=== PATIENT | female | born 1950 | race Caucasian/White ===

== ENCOUNTER 2022-06-03 13:28 | Inpatient (IN) | payer MEDICARE ==
[2022-06-03 18:26] LABS: Appearance,Urine Clear (Clear); Bilirubin,Urine Negative (Negative); Blood,Urine Negative (Negative); Color,Urine Yellow; Glucose,Urine (UA) Negative (Negative); Ketones,Urine Negative (Negative); Leukocyte Esterase,Urine Negative (Negative); Nitrite,Urine Negative (Negative); Protein,Urine Negative (Negative); Specific Gravity,Urine 1.018 (1.001-1.035); Urobilinogen,Urine <2.0 mg/dL (<2.0)
[2022-06-03 18:36] LABS: Amphetamine Screen,Urine Not Detected (NotDetected); Barbiturate Screen,Urine Not Detected (NotDetected); Benzodiazepines Screen,Urine Not Detected (NotDetected); Cocaine Screen,Urine Not Detected (NotDetected); Methadone Screen, Urine Not Detected (NotDetected); Opiate Screen,Urine Not Detected (NotDetected); Oxycodone Screen, Urine Not Detected (NotDetected); Phencyclidine Screen,Urine Not Detected (NotDetected); Tricyclic Antidepressant,Urine Not Detected (NotDetected); Urn Cannabinoid Scrn Not Detected (NotDetected)
[2022-06-03] MEDS ORDERED: MAGNESIUM HYDROXIDE 2,400 MG/10 ML CUP PO PRN (18:45)
[2022-06-03] MEDS ORDERED: ACETAMINOPHEN TAB 325 MG TAB PO PRN (18:45)
[2022-06-03] MEDS ORDERED: MAG HYDROX/AL HYDROX/SIMETH 30 ML CUP PO PRN (18:45)
[2022-06-03] MEDS ORDERED: HALOPERIDOL LACTATE 5 MG/ML 1 ML VIAL IM PRN (18:45)
[2022-06-03] MEDS ORDERED: haloperidoL 5 MG TAB PO PRN (18:47)
[2022-06-03] MEDS ORDERED: LORazepam 2 MG/ML INJ IM PRN (18:47)
[2022-06-03] MEDS ORDERED: ZOLPIDEM 5 MG TAB PO PRN (18:48)
--- NOTE | 2022-06-03 22:03 | ED ---
Psych HPI - General Chief Complaint: Psychiatric Symptoms Stated Complaint: mental health Time Seen by Provider: 06/03/22 13:40 Source: patient Mode of arrival: EMS - History of Present Illness Initial Comments: 71-year-old female past medical history of asthma, hypertension who presents to the emergency department with suicidal ideations. She reports that she has had significant stress with multiple family members. States that no one in her family is getting along. States that this makes her feel extremely sad and depressed. She has a diagnosis of depression. Went to see her therapist today. They reported that they were going to be unable to see the patient because of insurance reasons. She broke down in the waiting room. Her therapist took her back to a room and spoke with her about her situation. She mentioned that she was suicidal with a plan to jump into the river. Because of this he did call an ambulance transport the patient the hospital. The patient denies any attempt at hurting herself. She denies drug or alcohol use. No other alleviating, pr ecipitating or modifying factors - Related Data Home Medications Medication Instructions Recorded Confirmed Albuterol Sulfate [Ventolin HFA] 2 puff INHALATION RT-Q6H PRN 06/03/22 06/03/22 Atorvastatin [Lipitor] 40 mg PO DAILY 06/03/22 06/03/22 Calcium Carbonate [Calcium] 600 mg PO DAILY 06/03/22 06/03/22 Cholecalciferol [Vitamin D3 (125 125 mcg PO DAILY 06/03/22 06/03/22 Mcg = 5000 Iu)] Levothyroxine Sodium [Synthroid] 88 mcg PO DAILY 06/03/22 06/03/22 Magnesium Oxide 400 mg PO DAILY 06/03/22 06/03/22 Umeclidinium [place] [Incruse 1 puff INHALATION RT-DAILY 06/03/22 06/03/22 Ellipta] Vitamin B Complex 1 cap PO DAILY 06/03/22 06/03/22 Zinc Gluconate [Zinc] 50 mg PO DAILY 06/03/22 06/03/22 amLODIPine BESYLATE/BENAZEPRIL 1 cap PO DAILY 06/03/22 06/03/22 [Lotrel 5-10 mg Capsule] Previous Rx's Medication Instructions Recorded Melatonin 6 mg PO HS 30 Days #60 tab 06/09/22 Venlafaxine HCl [Effexor XR] 225 mg PO DAILY 30 Days #30 tab 06/09/22 buPROPion XL [Wellbutrin XL] 150 mg PO DAILY 30 Days #30 tab 06/09/22 buPROPion XL [Wellbutrin XL] 300 mg PO DAILY 30 Days #30 tab 06/09/22 Allergies Allergy/AdvReac Type Severity Reaction Status Date / Time No Known Allergies Allergy Unverified 06/03/22 16:01 Review of Systems ROS Statement: Those systems with pertinent positive or pertinent negative responses have been documented in the HPI. ROS Other: All systems not noted in ROS Statement are negative. Past Medical History Past Medical History: Asthma, Hypertension, Thyroid Disorder Additional Past Medical History / Comment(s): Spinal stenosis, heart murmur, arthritis History of Any Multi-Drug Resistant Organisms: None Reported Past Surgical History: Cholecystectomy Additional Past Surgical History / Comment(s): carpal tunnel on both wrists Past Anesthesia/Blood Transfusion Reactions: No Reported Reaction Past Psychological History: Anxiety, Depression Smoking Status: Former smoker Past Alcohol Use History: Rare Past Drug Use History: None Reported - Past Family History familiy Additional Family Medical History / Comment(s): substance abuse , alcohol General Exam Limitations: no limitations General appearance: alert, in no apparent distress Head exam: Present: atraumatic, normocephalic, normal inspection Eye exam: Present: normal appearance, PERRL, EOMI. Absent: scleral icterus, conjunctival injection, periorbital swelling ENT exam: Present: normal exam, mucous membranes moist Neck exam: Present: normal inspection. Absent: tenderness, meningismus, lymphadenopathy Respiratory exam: Present: normal lung sounds bilaterally. Absent: respiratory distress, wheezes, rales, rhonchi, stridor Cardiovascular Exam: Present: regular rate, normal rhythm, normal heart sounds. Absent: systolic murmur, diastolic murmur, rubs, gallop, clicks GI/Abdominal exam: Present: soft, normal bowel sounds. Absent: distended, tenderness, guarding, rebound, rigid Extremities exam: Present: normal inspection, full ROM, normal capillary refill. Absent: tenderness, pedal edema, joint swelling, calf tenderness Back exam: Present: normal inspection Neurological exam: Present: alert, oriented X3, CN II-XII intact Psychiatric exam: Present: depressed Skin exam: Present: warm, dry, intact, normal color. Absent: rash Course Vital Signs 06/03/22 13:30 Temperature 97.6 F Pulse Rate 68 Respiratory 18 Rate Blood Pressure 109/72 O2 Sat by Pulse 98 Oximetry Medical Decision Making - Medical Decision Making Was pt. sent in by a medical professional or institution? therapist Did you speak to anyone other than the patient for history? EMS Did you review nursing and triage notes? yes and I agree Were old charts reviewed? no Differential Diagnosis? depression, anxiety, SI, HI, drug use, alcoholism EKG interpreted by me (3pts min.)? no X-rays interpreted by me (1pt min.)? no] CT interpreted by me (1pt min.)? no U/S interpreted by me (1pt. min.)? no What testing was considered but not performed? (CT, X-rays, U/S, labs)? Why? none What meds were considered but not given? Why? none Did you discuss the management of the patient with other professionals? EPS nurse Did you reconcile home meds? yes Was smoking cessation discussed for >3mins.? no Was critical care preformed (if so, how long)? no Were there social determinants of health that impacted care today? How? (Homelessness, low income, unemployed, alcoholism, drug addiction, transportation, low edu. Level, literacy, decrease access to med. care, correction, rehab)? no Was there de-escalation of care discussed even if they declined? (Discuss DNR or withdrawal of care, Hospice)? no What co-morbidities impacted this encounter? (DM, HTN, Smoking, COPD, CAD, Canc er, CVA, Hep., AIDS, mental health diagnosis, sleep apnea, morbid obesity)? asthma, htn, thyroid disorder Was patient admitted / discharged? Upon arrival the patient was placed into room 8. A thorough history and physical exam was performed. Patient does admit to me suicidal ideations with the plan. She is cleared medically. Evaluated by EPS that feels that the patient would benefit from admission. Covid and urine obtained. Patient taken to the floor in stable condition Undiagnosed new problem with uncertain prognosis? yes Drug Therapy requiring intensive monitoring for toxicity (Heparin, Nitro, Insulin, Cardizem)? no Were any procedures done? no Diagnosis/symptom? acute depression Acute, or Chronic, or Acute on Chronic? acute on chronic Uncomplicated (without systemic symptoms) or Complicated (systemic symptoms)? complicated Side effects of treatment? sedation Exacerbation, Progression, or Severe Exacerbation] exacerbation Poses a threat to life or bodily function? yes - Lab Data Result diagrams: 06/04/22 11:12 06/04/22 11:12 Lab Results 06/03/22 06/03/22 Range/Units 16:35 18:21 Urine Color Yellow Urine Appearance Clear (Clear) Urine pH 5.0 (5.0-8.0) Ur Specific [place] 1.018 (1.001-1.035) Urine Protein Negative (Negative) Urine Glucose (UA) Negative (Negative) Urine Ketones Negative (Negative) Urine Blood Negative (Negative) Urine Nitrite Negative (Negative) Urine Bilirubin Negative (Negative) Urine Urobilinogen <2.0 (<2.0) mg/dL Ur Leukocyte Esterase Negative (Negative) Urine Opiates Screen Not Detected (NotDetected) Ur Oxycodone Screen Not Detected (NotDetected) Urine Methadone Screen Not Detected (NotDetected) Ur Propoxyphene Screen Not Detected (NotDetected) Ur Barbiturates Screen Not Detected (NotDetected) U Tricyclic Antidepress Not Detected (NotDetected) Ur Phencyclidine Scrn Not Detected (NotDetected) Ur Amphetamines Screen Not Detected (NotDetected) U Methamphetamines Scrn Not Detected (NotDetected) U Benzodiazepines Scrn Not Detected (NotDetected) Urine Cocaine Screen Not Detected (NotDetected) U Marijuana (THC) Screen Not Detected (NotDetected) Coronavirus (PCR) Not Detected (Not Detectd) Disposition Clinical Impression: Major depressive disorder without psychotic features Disposition: ADMITTED IP TO THIS [facility] Condition: Stable Is patient prescribed a controlled substance at d/c from ED?: No
[2022-06-04] MEDS: LEVOTHYROXINE 88 MCG TAB PO SCH ×2 (06:39→09:19)
[2022-06-04] MEDS ORDERED: VENLAFAXINE HCL ER 150 MG CAP PO SCH (09:00)
[2022-06-04] MEDS: buPROPion XL 300 MG TAB.ER.24H PO SCH (09:18)
[2022-06-04] MEDS: lisinopriL 10 MG TAB PO SCH (09:18)
[2022-06-04] MEDS: ATORVASTATIN 40 MG TAB PO SCH (09:18)
[2022-06-04] MEDS: amLODIPine 5 MG TAB PO SCH (09:18)
[2022-06-04] MEDS: buPROPion XL 150 MG TAB.ER.24H PO SCH (09:18)
[2022-06-04] MEDS: NICOTINE 14MG/24HR PATCH TRANSDERM SCH (09:19)
[2022-06-04 12:15] LABS: Basophils # (A) 0.1 k/uL (0-0.2); Basophils % (A) 1 %; Eosinophils # (A) 0.3 k/uL (0-0.7); Eosinophils % (A) 3 %; HCT 41.2 % (34.0-46.0); HGB 13.4 gm/dL (11.4-16.0); Lymphocytes # (A) 2.8 k/uL (1.0-4.8); Lymphocytes % (A) 34 %; MCH 28.5 pg (25.0-35.0); MCHC 32.6 g/dL (31.0-37.0); MCV 87.4 fL (80.0-100.0); Mean Platelet Volume 6.9; Monocytes # (A) 0.6 k/uL (0-1.0); Monocytes % (A) 7 %; Neutrophils # (A) 4.1 k/uL (1.3-7.7); Neutrophils % (A) 51 %; Platelet Count 362 k/uL (150-450); RBC 4.72 m/uL (3.80-5.40); RDW 13.6 % (11.5-15.5); WBC 8.2 k/uL (3.8-10.6)
[2022-06-04 12:32] LABS: Calcium 9.2 mg/dL (8.4-10.2); Potassium 4.5 mmol/L (3.5-5.1); Total Bilirubin 0.4 mg/dL (0.2-1.3); Total Protein 6.8 g/dL (6.3-8.2)
--- NOTE | 2022-06-04 14:28 | P.HP ---
Psychiatric H&P - . H&P Date: 06/04/22 History & Physical: Allergies Allergy/AdvReac Type Severity Reaction Status Date / Time No Known Allergies Allergy Unverified 06/03/22 16:01 Vital Signs Temp 97.8 F 06/04/22 06:34 Pulse 85 06/04/22 06:34 Resp 14 06/04/22 06:34 BP 116/72 06/04/22 06:34 Pulse Ox 98 06/03/22 13:30 FiO2 Intake & Output 06/03/22 06/04/22 06/04/22 18:59 06:59 18:59 Weight 81.647 kg 84.056 kg Laboratory Last Values WBC 8.2 k/uL (3.8-10.6) 06/04/22 11: RBC 4.72 m/uL (3.80-5.40) 06/04/22 11:12 Hgb 13.4 gm/dL (11.4-16.0) 06/04/22 11:12 Hct 41.2 % (34.0-46.0) 06/04/22 11:12 MCV 87.4 fL (80.0-100.0) 06/04/22 11:12 MCH 28.5 pg (25.0-35.0) 06/04/22 11:12 MCHC 32.6 g/dL (31.0-37.0) 06/04/22 11:12 RDW 13.6 % (11.5-15.5) 06/04/22 11:12 Plt Count 362 k/uL (150-450) 06/04/22 11:12 MPV 6.9 06/04/22 11:12 Neutrophils % 51 % 06/04/22 11:12 Lymphocytes % 34 % 06/04/22 11:12 Monocytes % 7 % 06/04/22 11:12 Eosinophils % 3 % 06/04/22 11:12 Basophils % 1 % 06/04/22 11:12 Neutrophils # 4.1 k/uL (1.3-7.7) 06/04/22 11:12 Lymphocytes # 2.8 k/uL (1.0-4.8) 06/04/22 11:12 Monocytes # 0.6 k/uL (0-1.0) 06/04/22 11:12 Eosinophils # 0.3 k/uL (0-0.7) 06/04/22 11:12 Basophils # 0.1 k/uL (0-0.2) 06/04/22 11:12 Sodium 140 mmol/L (137-145) 06/04/22 11:12 Potassium 4.5 mmol/L (3.5-5.1) 06/04/22 11:12 Chloride 103 mmol/L (98-107) 06/04/22 11:12 Carbon Dioxide 31 mmol/L (22-30) H 06/04/22 11:12 Anion Gap 6 mmol/L 06/04/22 11:12 BUN 26 mg/dL (7-17) H 06/04/22 11:12 Creatinine 1.07 mg/dL (0.52-1.04) H 06/04/22 11:12 Est GFR (CKD-EPI)AfAm 62 (>60 ml/min/1.73 sqM) 06/04/22 11:12 Est GFR (CKD-EPI)NonAf 53 (>60 ml/min/1.73 sqM) 06/04/22 11:12 Glucose 82 mg/dL (74-99) 06/04/22 11:12 Calcium 9.2 mg/dL (8.4-10.2) 06/04/22 11:12 Total Bilirubin 0.4 mg/dL (0.2-1.3) 06/04/22 11:12 AST 24 U/L (14-36) 06/04/22 11:12 ALT 25 U/L (4-34) 06/04/22 11:12 Alkaline Phosphatase 91 U/L (38-126) 06/04/22 11:12 Total Protein 6.8 g/dL (6.3-8.2) 06/04/22 11:12 Albumin 4.0 g/dL (3.5-5.0) 06/04/22 11:12 TSH 2.200 mIU/L (0.465-4.680) 06/04/22 11:12 Urine Color Yellow 06/03/22 18:21 Urine Appearance Clear (Clear) 06/03/22 18:21 Urine pH 5.0 (5.0-8.0) 06/03/22 18:21 Ur Specific [place] 1.018 (1.001-1.035) 06/03/22 18:21 Urine Protein Negative (Negative) 06/03/22 18:21 Urine Glucose (UA) Negative (Negative) 06/03/22 18:21 Urine Ketones Negative (Negative) 06/03/22 18:21 Urine Blood Negative (Negative) 06/03/22 18:21 Urine Nitrite Negative (Negative) 06/03/22 18:21 Urine Bilirubin Negative (Negative) 06/03/22 18:21 Urine Urobilinogen <2.0 mg/dL (<2.0) 06/03/22 18:21 Ur Leukocyte Esterase Negative (Negative) 06/03/22 18:21 Urine Opiates Screen Not Detected (NotDetected) 06/03/22 18:21 Ur Oxycodone Screen Not Detected (NotDetected) 06/03/22 18:21 Urine Methadone Screen Not Detected (NotDetected) 06/03/22 18:21 Ur Propoxyphene Screen Not Detected (NotDetected) 06/03/22 18:21 Ur Barbiturates Screen Not Detected (NotDetected) 06/03/22 18:21 U Tricyclic Antidepress Not Detected (NotDetected) 06/03/22 18:21 Ur Phencyclidine Scrn Not Detected (NotDetected) 06/03/22 18:21 Ur Amphetamines Screen Not Detected (NotDetected) 06/03/22 18:21 U Methamphetamines Scrn Not Detected (NotDetected) 06/03/22 18:21 U Benzodiazepines Scrn Not Detected (NotDetected) 06/03/22 18:21 Urine Cocaine Screen Not Detected (NotDetected) 06/03/22 18:21 U Marijuana (THC) Screen Not Detected (NotDetected) 06/03/22 18:21 Coronavirus (PCR) Not Detected (Not Detectd) 06/03/22 16:35 06/04/22 14:17 IDENTIFYING DATA: Patient is a 71-year-old female who has 2 kids and several grandchildren, lives with her granddaughter in a house, is . HPI: Patient presented to the hospital yesterday and was evaluated for suicidal ideations and was endorsing stressors in her family and depression. Patient apparently was brought in from her therapy session that she was unable to have due to insurance reasons. Patient in the ER was endorsing a plan to jump in the river. Patient was seen today attending group and agreeable to specification writer. She claims that she came up to [place] to see her therapist that she was given "6 free sessions" and states that they . She claims that they told her that she was unable to continue and she claims that "I was not in a good mood" and also explained feeling frustrated and emotional and that she was not able to be seen. She claims that she told her therapist at that time that she was suicidal and wanted to jump into the river. She was brought in by ambulance. Patient did claim that she's been feeling more depressed and anxious lately. She spoke mainly about a lot of family dynamics and issues and also feeling like she can set boundaries with her grandchildren and other people and feels taken advantage of. She claims that her about 2 years ago and wants to move out of the house as well but her granddaughter won't let her. She was endorsing anxiety as well. Patient denies any suicidal or homicidal ideations intent or plan. At this time patient denies any auditory or visual hallucinations. Patient denies any flight of ideas racing thoughts and increased in goal directed behavior. Patient admits to using no recreational drugs or cigarettes. PAST PSYCHIATRIC HISTORY: Patient states that she has a history of depression and anxiety. Issues currently on Wellbutrin, Ambien as needed, Effexor and Xanax as needed. Patient denies any previous psychiatric hospitalizations. She states that she was previously going to [facility] for her therapist and was also seeing her psychiatrist in [place]. Patient denies any history of suicide attempts in the past. Past Medical History: Asthma, Hypertension, Thyroid Disorder Additional Past Medical History / Comment(s): Spinal stenosis, heart murmur, arthritis History of Any Multi-Drug Resistant Organisms: None Reported Past Surgical History: Cholecystectomy Additional Past Surgical History / Comment(s): carpal tunnel on both wrists Past Anesthesia/Blood Transfusion Reactions: No Reported Reaction Past Psychological History: Anxiety, Depression Smoking Status: Former smoker Past Alcohol Use History: Rare Past Drug Use History: None Reported ALLERGIES: as per EMR CHEMICAL DEPENDENCY HISTORY: as per HPI FAMILY PSYCHIATRIC/SUBSTANCE USE HISTORY: denies SOCIAL HISTORY: Patient was born and raised in [place]. She states that she completed high school and did some college. 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 She states that she has 2 kids and several grandkids. She currently lives in a house with her granddaughter. She is . MENTAL STATUS EXAM: General Appearance: Patient appears to be overweight, wearing glasses, brown hair, stated age is alert, directable, and attempts to cooperate. Patient appears to have poor hygiene and grooming. Behavior: Patient is seated without any agitated behavior. Peers to be frustrated at times Speech: Patient's speech is fluent and nonpressured. Mood/Affect: Patient reports their mood is depressed and anxious, affect is congruent and constricted. Suicidality/Homicidality: Patient denies having any homicidal ideation intent or plan. Denies any suicidal ideations intent or plan Perceptions: Patient denies any visual hallucinations and denies any auditory hallucinations Though content/process: There is no evidence of any delusional thought content and thought process is linear and goal-directed. Focused on her family stressors Memory and concentration: AOX3, grossly intact for the purposes of this session. Can spell "WORLD" backwards Judgment and insight: poor STRENGTHS/WEAKNESSES: strength is that patient is resilient. Weakness is that patient has poor judgment and is impulsive INTELLECT: average IMPRESSIONS: Major depressive disorder, without psychotic features Anxiety disorder unspecified PLAN: -Patient is admitted under voluntary status to MHU for stabilization of psychiatric symptoms and safety. Patient has signed adult voluntary form and medication consent and is placed in patient's chart. -Medications : Will start patient on Wellbutrin 450 mg daily for mood, increase Effexor to 225 mg daily for mood/anxiety, discontinue Ambien and replaced with trazodone 50 mg daily at bedtime when necessary for insomnia. -Ativan and Haldol PRN for agitation/aggression -Patient was informed of the risks, benefits and side effects of the medication and patient verbally consented to taking the medications. Patient signed med consent form and was placed in chart. -Internal Medicine consult to perform medical evaluation and physical. -NRT - not needed as patient does not smoke -SW on board for discharge planning. Encourage patient to participate in groups to work on coping skills.
--- NOTE | 2022-06-05 01:49 | P.MDCNMH ---
History of Present Illness H&P Date: 06/04/22 Chief Complaint: medical eval 71 year old female with hypothyroid , hypertension patient coming in for overwhelming depression and suicidal ideation, she was sent in for evaluation by her therapist as she expressed suicidal ideation she denies any medical concerns at this time I reviewed her labs, and discussed with her the findings of A1c being elevated and suggestive of prediabetes. discussed with her some options regarding weight loss, dietary modification , and medications like metformin or ozempic slightly elevated creatinine , patient claims having good urine output , denies any nausea vomiting, hematuria she denies tobacco smoking, illicit drugs or alcohol Review of Systems Pertinent positives as noted in HPI. All other systems were reviewed and are negative Past Medical History Past Medical History: Asthma, Hypertension, Thyroid Disorder Additional Past Medical History / Comment(s): Spinal stenosis, heart murmur, arthritis History of Any Multi-Drug Resistant Organisms: None Reported Past Surgical History: Cholecystectomy Additional Past Surgical History / Comment(s): carpal tunnel on both wrists Past Anesthesia/Blood Transfusion Reactions: No Reported Reaction Past Psychological History: Anxiety, Depression Smoking Status: Former smoker Past Alcohol Use History: Rare Past Drug Use History: None Reported - Past Family History familiy Additional Family Medical History / Comment(s): substance abuse , alcohol Medications and Allergies Home Medications Medication Instructions Recorded Confirmed Type ALPRAZolam [Xanax] 0.25 mg PO DAILY PRN 06/03/22 06/03/22 History Albuterol Sulfate [Ventolin HFA] 2 puff INHALATION RT-Q6H PRN 06/03/22 06/03/22 History Atorvastatin [Lipitor] 40 mg PO DAILY 06/03/22 06/03/22 History Calcium Carbonate [Calcium] 600 mg PO DAILY 06/03/22 06/03/22 History Cholecalciferol [Vitamin D3 (125 125 mcg PO DAILY 06/03/22 06/03/22 History Mcg = 5000 Iu)] Levothyroxine Sodium [Synthroid] 88 mcg PO DAILY 06/03/22 06/03/22 History Magnesium Oxide 400 mg PO DAILY 06/03/22 06/03/22 History Umeclidinium [place] [Incruse 1 puff INHALATION RT-DAILY 06/03/22 06/03/22 History Ellipta] Venlafaxine HCl [Effexor XR] 150 mg PO DAILY 06/03/22 06/03/22 History Vitamin B Complex 1 cap PO DAILY 06/03/22 06/03/22 History Zinc Gluconate [Zinc] 50 mg PO DAILY 06/03/22 06/03/22 History Zolpidem Tartrate [Ambien] 10 mg PO HS 06/03/22 06/03/22 History amLODIPine BESYLATE/BENAZEPRIL 1 cap PO DAILY 06/03/22 06/03/22 History [Lotrel 5-10 mg Capsule] buPROPion XL [Wellbutrin XL] 150 mg PO DAILY 06/03/22 06/03/22 History buPROPion XL [Wellbutrin XL] 300 mg PO DAILY 06/03/22 06/03/22 History Allergies Allergy/AdvReac Type Severity Reaction Status Date / Time No Known Allergies Allergy Unverified 06/03/22 16:01 Physical Exam Vitals: Vital Signs Temp Pulse Resp BP 06/04/22 06:34 97.8 F 85 14 116/72 06/03/22 21:27 97.9 F 91 18 115/75 Constitutional: No acute distress, conversant, Eyes: Anicteric sclerae, moist conjunctiva, Pupils equal round reactive to light ENMT: NC/AT Oropharynx clear, no erythema, or exudates Neck: Supple, no masses, or JVD No carotid bruits No thyromegaly Lungs: Clear to auscultation Clear to percussion Normal respiratory effort, no accessory muscle use Cardiovascular: Heart regular in rate and rhythm, No murmurs, gallops, or rubs No peripheral edema Abdominal: Soft Nontender, no guarding, rebound or rigidity Abdomen moving with respiration Normoactive bowel sounds Skin: Normal temperature, tone, texture, turgor Extremities: No digital cyanosis No clubbing Pedal pulses intact and symmetrical Radial pulses intact and symmetrical No calf tenderness Psychiatric: Alert and oriented to person, place and time Neuro Muscles Strength 5/5 in all 4 extremities Sensation to light touch grossly present throughout Cranial nerves II-XII grossly intact Lymphatics: no palpable cervical or supraclavicular lymph nodes Cranial Nerve Examination - Cranial Nerves Cranial Nerve II- Optic: Intact Cranial Nerve III- Oculomotor: Intact Cranial Nerve IV- Trochlear: Intact Cranial Nerve V- Trigeminal: Intact Cranial Nerve - Abducens: Intact Cranial Nerve VII- Facial: Intact Cranial Nerve VIII- Auditory: Intact Cranial Nerve IX- Glossopharyngeal: Intact Cranial Nerve X- Vagus: Intact Cranial Nerve XI- Accessory: Intact Cranial Nerve XII- Hypoglossal: Intact Results CBC & Chem 7: 06/04/22 11:12 06/04/22 11:12 Labs: Abnormal Lab Results - Last 24 Hours (Table) 06/04/22 06/04/22 Range/Units 11:12 11:12 Carbon Dioxide 31 H (22-30) mmol/L BUN 26 H (7-17) mg/dL Creatinine 1.07 H (0.52-1.04) mg/dL Hemoglobin A1c 6.3 H (0.0-6.0) % Assessment and Plan Assessment: prediabetes Obesity advised to consider weight loss and life style modifications, and possibly pharmaceuticals like metformin or ozempic patient wanted to follow up with her PCP on her A1c , and defer to her PCP the decision regarding meds A1C 6.3 depression suicidal ideation management per psych blood work reviewed, A1C pre DM , slightly elevated Creatinine , no other electrolytes abnormalities mild persistent asthma resume inhalers hypertension , controlled resume amlodipine monitor vital signs hypothyroid resume levothyroxine TSH unremarkable thank you for this consultation
[2022-06-05] MEDS: IPRATROPIUM 0.5 MG/2.5 ML NEBU INHALATION SCH ×7 (09:16→21:04)
[2022-06-05] MEDS: VENLAFAXINE HCL ER 75 MG CAP PO SCH ×2 (09:41→15:24)
[2022-06-05] MEDS: amLODIPine 5 MG TAB PO SCH (09:42)
[2022-06-05] MEDS: ATORVASTATIN 40 MG TAB PO SCH (09:42)
[2022-06-05] MEDS: lisinopriL 10 MG TAB PO SCH (09:44)
[2022-06-05] MEDS: NICOTINE 14MG/24HR PATCH TRANSDERM SCH (09:44)
[2022-06-05] MEDS: CHOLECALCIFEROL 125 MCG (5000 IU) TABLET PO SCH (09:44)
[2022-06-05] MEDS: buPROPion XL 150 MG TAB.ER.24H PO SCH (09:45)
[2022-06-05] MEDS: buPROPion XL 300 MG TAB.ER.24H PO SCH (09:46)
[2022-06-05] MEDS: LEVOTHYROXINE 88 MCG TAB PO SCH (10:41)
--- NOTE | 2022-06-05 14:17 | P.PN ---
Progress Note - Text Progress Note Date: 06/05/22 Interval History: Patient was seen wandering the hallways and was directable and agreeable to sp cornel with field underwriter in the office. Patient continues to be superficial and argumentative about her treatment. She claims that she has attempted to contact her psychiatrist over the phone about the Effexor increase however states that she has not been able to get hold of him. She continues to endorse depression at this time and also anxiety. She also continues to argue with field underwriter about the criteria for her being admitted and staying in the hospital and continues to state that she needs "intensive therapy" to help with her symptoms. she claims that she did sleep fairly last night with no issues. She claims to have a fair appetite. she is focused on discharge and challenging about her medications and claims that she wants to sign AMA today. At this time patient denies any suicidal or homical ideations, intent or plan. Patient denies any auditory, visual hallucinations and denies any paranoia or delusions. Patient denies any side effects from the medications and has been compliant with meds. minimizinfg her need for hospitalization. Mental Status Exam: General Appearance: Patient appears to be overweight, wearing glasses, brown hair, stated age is alert, argumentative at times and minimizing. Patient appears to have improving hygiene and grooming. Behavior: Patient is seated without any agitated behavior. Frustrated and argumentative. Speech: Patient's speech is fluent and nonpressured. Mood/Affect: Patient reports their mood is depressed and anxious, affect is congruent and constricted. Suicidality/Homicidality: Patient denies having any homicidal ideation intent or plan. Denies any suicidal ideations intent or plan Perceptions: Patient denies any visual hallucinations and denies any auditory hallucinations Though content/process: There is no evidence of any delusional thought content and thought process is linear and goal-directed. Focused on her family stressors and also minimizing her need for increased meds and hospitalization. Memory and concentration: AOX3, grossly intact for the purposes of this session. Judgment and insight: superficial/poor IMPRESSIONS: Major depressive disorder, without psychotic features Anxiety disorder unspecified Plan: -Patient continues to meet criteria for inpatient psychiatric admission for symptom stabilization and safety. Patient has signed adult voluntary form and medication consent and was placed in patient's chart. -Medications: Wellbutrin 450 mg daily for mood, continue Effexor 225 mg daily for mood/anxiety, continue with trazodone 50 mg daily at bedtime when necessary for insomnia. -Ativan and Haldol PRN for agitation/aggression -When necessary Ativan and Haldol for agitation/aggression. -NRT - not needed as patient does not smoke -SW on board for discharge planning. Encouraged the patient to participate in milieu. possibly discharge early next week, will ask SW to call granddaughter to ensure house is safe prioir to d/c
[2022-06-05] MEDS: LORazepam 1 MG TAB PO PRN (15:22)
[2022-06-05] MEDS: traZODone HCL 50 MG TAB PO PRN (21:04)
[2022-06-06] MEDS: LEVOTHYROXINE 88 MCG TAB PO SCH (06:19)
[2022-06-06] MEDS: NICOTINE 14MG/24HR PATCH TRANSDERM SCH (09:00)
[2022-06-06] MEDS: ATORVASTATIN 40 MG TAB PO SCH (09:01)
[2022-06-06] MEDS: buPROPion XL 150 MG TAB.ER.24H PO SCH (09:01)
[2022-06-06] MEDS: buPROPion XL 300 MG TAB.ER.24H PO SCH (09:01)
[2022-06-06] MEDS: lisinopriL 10 MG TAB PO SCH (09:02)
[2022-06-06] MEDS: VENLAFAXINE HCL ER 75 MG CAP PO SCH (09:02)
[2022-06-06] MEDS: CHOLECALCIFEROL 125 MCG (5000 IU) TABLET PO SCH (09:02)
[2022-06-06] MEDS: amLODIPine 5 MG TAB PO SCH (09:02)
[2022-06-06] MEDS: LORazepam 1 MG TAB PO PRN ×3 (09:05→20:57)
[2022-06-06] MEDS: ALBUTEROL HFA INHALER INHALATION PRN (11:30)
[2022-06-06] MEDS: IPRATROPIUM 0.5 MG/2.5 ML NEBU INHALATION SCH ×3 (13:09→19:08)
--- NOTE | 2022-06-06 18:42 | P.PN ---
Subjective Progress Note Date: 06/06/22 Principal diagnosis: Progress note Jun 06 2022 She continued to maintain her progress. She was admitted following her suicidal threat relating to insurance coverage and issues relating to her therapeutic sessions. Unresolved family dyanmics and residual bereavement were the major stressors i nher life; she talked about heow she loved [facility] in [place] in the wintry months and would drive long distance to attend her herapeutic sessions. She admitted her conflictual and dependent relationship with her grand-daughter and her son often dampened her mood even she was on the optimal dosage of antidepressants: Effexor 225 mg po od wellbutrin 300 mg po od and 150 mg po qam. She tolerated the combined Rx with no adverse events. She was very talkative wit no pressures of speech. She has formualted goals for her future and learn to make good use of her coping skills to deal better with her widowhood. She was eager to be discharged early next week and had maintained contact wit her family . She did not take seriously of her suicidal threat jumping into the river in [place] diagnosis: Major depressive disorer, moderate severity, multiple stressors impacting upon her course, Suicidality resolved . r/o unresolved bereavement reaction, screening for cognitive defciits age- related vs mood dsirdoer driven MSE: She was well groomed and was eager to be talking about her experiences at home and how she navigated through appointments at long distance. She was resourceful and flexible to consider moving her after care to tbe closer to her residence 50 miles from [place]. Affect: euthymic with normal range of affect. Congruent with her thought content. NO perceptual disturabnce was evident. No hallucinations or delusions of paranoid . Thought content and proce ss: she was not preoccupied with thought of dying : no suicidal or homicidal ideation. Goal directed and rational problem solving mode of thinking. Cog; Oriented. no clouded sensorium. Insight and judgment was improved much to her most likely premorbid level. management : given her recent change, she would require the wekend to consoldiate her gains and would still fulfil the admission criteria for inpatient stay She would continue on her current Rx regimen and monitor for any adverse events eg BP changes She would arrange for discharge planning early next week. She may benefit from open family sessions to discuss her social security benefits, alignment relationship with her sons and granddaughter and her coping with the of her ' Objective - Vital Signs Vital signs: Vital Signs Temp 97.7 F 06/05/22 06:45 Pulse 80 06/06/22 10:24 Resp 14 06/05/22 06:45 BP 125/74 06/06/22 09:07 Pulse Ox 98 06/03/22 13:30 FiO2 - Labs CBC & Chem 7: 06/04/22 11:12 06/04/22 11:12
[2022-06-06] MEDS: traZODone HCL 50 MG TAB PO PRN (20:57)
[2022-06-07] MEDS: LEVOTHYROXINE 88 MCG TAB PO SCH (06:25)
[2022-06-07] MEDS: IPRATROPIUM 0.5 MG/2.5 ML NEBU INHALATION SCH ×4 (07:39→20:42)
[2022-06-07] MEDS: CHOLECALCIFEROL 125 MCG (5000 IU) TABLET PO SCH (08:46)
[2022-06-07] MEDS: amLODIPine 5 MG TAB PO SCH (08:46)
[2022-06-07] MEDS: VENLAFAXINE HCL ER 75 MG CAP PO SCH (08:46)
[2022-06-07] MEDS: ATORVASTATIN 40 MG TAB PO SCH (08:46)
[2022-06-07] MEDS: lisinopriL 10 MG TAB PO SCH (08:46)
[2022-06-07] MEDS: buPROPion XL 300 MG TAB.ER.24H PO SCH (08:46)
[2022-06-07] MEDS: buPROPion XL 150 MG TAB.ER.24H PO SCH (08:47)
[2022-06-07] MEDS: NICOTINE 14MG/24HR PATCH TRANSDERM SCH (08:48)
[2022-06-07] MEDS: LORazepam 1 MG TAB PO PRN ×2 (08:49→18:27)
--- NOTE | 2022-06-07 19:58 | P.PN ---
Subjective Progress Note Date: 06/07/22 Principal diagnosis: Progress note Jun 07, 2022 She was seen in person again to review her progress. She mood symptoms and behavior have sustained imrovement She was eager to be discharge and to sort out family dynamics No complaint of side effects or adverse events. No change in Rx was needed. Sub: Improved in overall functioning she particiapted readily in unit activites with euthymic mood no thought disturbance Dig. major depression aisorder, Plan: discharge plan maintenance family herapy, engage with nearby [facility] case management necessary Objective - Vital Signs Vital signs: Vital Signs Temp 97.1 F L 06/07/22 06:21 Pulse 104 H 06/07/22 08:48 Resp 16 06/07/22 06:21 BP 125/66 06/07/22 08:48 Pulse Ox 96 06/07/22 06:21 FiO2 - Labs CBC & Chem 7: 06/04/22 11:12 06/04/22 11:12
[2022-06-08] MEDS: LEVOTHYROXINE 88 MCG TAB PO SCH (07:01)
[2022-06-08] MEDS: TIOTROPIUM 2.5 MCG INHALER (MHU) INHALATION SCH (09:15)
[2022-06-08] MEDS: VENLAFAXINE HCL ER 75 MG CAP PO SCH (09:21)
[2022-06-08] MEDS: CHOLECALCIFEROL 125 MCG (5000 IU) TABLET PO SCH (09:21)
[2022-06-08] MEDS: buPROPion XL 300 MG TAB.ER.24H PO SCH (09:21)
[2022-06-08] MEDS: buPROPion XL 150 MG TAB.ER.24H PO SCH (09:22)
[2022-06-08] MEDS: ATORVASTATIN 40 MG TAB PO SCH (09:22)
[2022-06-08] MEDS: lisinopriL 10 MG TAB PO SCH (09:59)
[2022-06-08] MEDS: amLODIPine 5 MG TAB PO SCH (09:59)
[2022-06-08] MEDS: LORazepam 1 MG TAB PO PRN (10:00)
--- NOTE | 2022-06-08 12:56 | P.PN ---
Progress Note - Text Progress Note Date: 06/08/22 Interval History: Patient was seen wandering the hallways and was directable and agreeable to xander unger with technical report writer in the office. Patient claims that she did fairly well over the weekend. She claims that her mood has been improving. She states that she is talking troubles regulating her sleep. She continues to be very skeptical about medications and also the need to new medications. We spoke about different options for help with sleep and patient was agreeable to try melatonin. She claims that her anxiety is also been improving moderately. She claims that she has been going to groups and continues to focus on wanting therapy. She states that her appetite is also improved. At this time patient denies any suicidal or homical ideations, intent or plan. Patient denies any auditory, visual hallucinations and denies any paranoia or delusions. Patient denies any side effects from the medications and has been compliant with meds. minimizinfg her need for hospitalization. Focused on discharge. Mental Status Exam: General Appearance: Patient appears to be overweight, wearing glasses, brown hair, stated age is alert, less argumentative. Patient appears to have improving hygiene and grooming. Behavior: Patient is seated without any agitated behavior. More cooperative today Speech: Patient's speech is fluent and nonpressured. Mood/Affect: Patient reports their mood is improving mildly, affect is congruent and constricted. Suicidality/Homicidality: Patient denies having any homicidal ideation intent or plan. Denies any suicidal ideations intent or plan Perceptions: Patient denies any visual hallucinations and denies any auditory hallucinations Though content/process: There is no evidence of any delusional thought content and thought process is linear and goal-directed. Memory and concentration: AOX3, grossly intact for the purposes of this session. Judgment and insight: improving mildly IMPRESSIONS: Major depressive disorder, without psychotic features Anxiety disorder unspecified Plan: -Patient continues to meet criteria for inpatient psychiatric admission for symptom stabilization and safety. Patient has signed adult voluntary form and medication consent and was placed in patient's chart. -Medications: Wellbutrin 450 mg daily for mood, continue Effexor 225 mg daily for mood/anxiety, continue with trazodone 50 mg daily at bedtime when necessary for insomnia. added melatonin for sleep. -Ativan and Haldol PRN for agitation/aggression -When necessary Ativan and Haldol for agitation/aggression. -NRT - not needed as patient does not smoke -SW on board for discharge planning. Encouraged the patient to participate in milieu. Patient signed AMA on 06/05. SW to call granddaughter to ensure house is safe prioir to d/c. will likely plan for discharge tomorrow.
[2022-06-08] MEDS ORDERED: MELATONIN 3 MG TABLET PO SCH (21:00)
[2022-06-09] MEDS: ALBUTEROL HFA INHALER INHALATION PRN (00:40)
[2022-06-09 00:41] VITALS: BP 104/62; PULSE 97; RESP 17; TEMP 97.9
[2022-06-09] MEDS: LEVOTHYROXINE 88 MCG TAB PO SCH (06:17)
[2022-06-09] MEDS: amLODIPine 5 MG TAB PO SCH (08:44)
[2022-06-09] MEDS: CHOLECALCIFEROL 125 MCG (5000 IU) TABLET PO SCH (08:44)
[2022-06-09] MEDS: TIOTROPIUM 2.5 MCG INHALER (MHU) INHALATION SCH (08:44)
[2022-06-09] MEDS: ATORVASTATIN 40 MG TAB PO SCH (08:44)
[2022-06-09] MEDS: buPROPion XL 150 MG TAB.ER.24H PO SCH (08:44)
[2022-06-09] MEDS: VENLAFAXINE HCL ER 75 MG CAP PO SCH (08:44)
[2022-06-09] MEDS: buPROPion XL 300 MG TAB.ER.24H PO SCH (08:44)
[2022-06-09] MEDS: lisinopriL 10 MG TAB PO SCH (08:45)
--- NOTE | 2022-06-09 11:29 | P.DS ---
Providers Date of admission: 06/03/22 18:41 Expected date of discharge: 06/09/22 Attending physician: Candido Eddy MD Consults: 06/03/22 18:45 Consult Physician Routine Consulting Provider: Keisha Escoto Consult Reason/Comments: H&P Do you want consulting provider notified?: Yes Primary care physician: Babak Parsons - Discharge Diagnosis(es) (1) Major depressive disorder without psychotic features Current Visit: Yes Status: Acute Priority: High (2) Anxiety disorder Current Visit: Yes Status: Acute Priority: Medium Hospital Course: Admission HPI: Admission note was completed by [junior copywriter] "Patient is a 71-year-old female who has 2 kids and several grandchildren, lives with her granddaughter in a house, is . Patient presented to the hospital yesterday and was evaluated for suicidal ideations and was endorsing stressors in her family and depression. Patient apparently was brought in from her therapy session that she was unable to have due to insurance reasons. Patient in the ER was endorsing a plan to jump in the river. Patient was seen today attending group and agreeable to junior copywriter. She claims that she came up to [place] to see her therapist that she was given "6 free sessions" and states that they . She claims that they told her that she was unable to continue and she claims that "I was not in a good mood" and also explained feeling frustrated and emotional and that she was not able to be seen. She claims that she told her therapist at that time that she was suicidal and wanted to jump into the river. She was brought in by ambulance. Patient did claim that she's been feeling more depressed and anxious lately. She spoke mainly about a lot of family dynamics and issues and also feeling like she can set boundaries with her grandchildren and other people and feels taken advantage of. She claims that her about 2 years ago and wants to move out of the house as well but her granddaughter won't let her. She was endorsing anxiety as well. Patient denies any suicidal or homicidal ideations intent or plan. At this time patient denies any auditory or visual hallucinations. Patient denies any flight of ideas racing thoughts and increased in goal directed behavior. Patient admits to using no recreational drugs or cigarettes." Hospital course: Upon admission to the unit patient was [directable and agreeable to commence treatment and signed adult voluntary form] . Patient ended up signing AMA on 06/05. Patient got along well with other patients on the unit and followed unit protocol. Patient was compliant with the medications and denied any side effects throughout hospital course. Patient was started on Effexor and increased her home dose to 225 mg daily for mood/anxiety. Patient was also restarted back on her home dose of Wellbutrin 450 mg daily for mood. Patient was also started on melatonin for sleep. Patient spoke of her stressors and engaged in therapy both group and individual. Patient was also seen by medical team for history and physical exam. [] Throughout the course of the hospitalization patient gradually improved with regards to [mood, anxiety], sleep and [became more future oriented with improved insight and judgment]. On the day of discharge patient denied any suicidal or homicidal ideations intent or plan denied any auditory or visual hallucinations. Patient endorsed wanting to live for her family and her future. The patient denied any access to guns or weapons. Patient denied any paranoia and did not endorse any delusions. Patient does [not] have a significant history of substance abuse [and] was counseled on abstaining from all substances including alcohol and marijuana. Patient was also counseled on the medications and need for regular compliance and was encouraged to follow-up with their outpatient appointment for mental health and also for primary care. [Prior to discharge a family meeting will be arranged by social media specialist to answer any questions and ensure safety upon discharge.] [] Mental status exam: General Appearance: Patient appears to be overweight, wearing glasses, stated age is alert, pleasant, and cooperative. Patient is in no acute distress and has improved hygiene and grooming Behavior: Patient is calmly seated without any agitated behavior. Speech: Patient's speech is fluent and nonpressured. Mood/Affect: Patient reports their mood is "good", affect is congruent and euthymic. Suicidality/Homicidality: Patient denies having any suicidal or homicidal ideation intent or plan. Perceptions: Patient denies any auditory or visual hallucinations. Though content/process: There is no evidence of any delusional thought content and thought process is linear and goal-directed. [more future oriented] Memory and concentration: AOX3, grossly intact for the purposes of this session. Can spell "WORLD" backwards correctly. Judgment and insight: improved with guarded prognosis Impression: Major depressive disorder without psychotic features Anxiety disorder unspecified Plan: -Continue with discharge today as patient has improved and stabilized psychiatrically and is not currently an imminent threat to herself and/or others. -Continue medications: Effexor 225 mg daily for mood/anxiety, Wellbutrin 450 mg daily for mood, melatonin 6 mg daily at bedtime for sleep. -Patient was counseled on the need for medication compliance and appropriate follow-up at mental health and also primary care for medical issues. Patient verbalized understanding and agreed. -Social work to [arrange for and conduct family meeting to ensure safety upon discharge and answer any questions/concerns.] Social work also to arrange for patients follow up appointments for psychiatric care along with follow up with primary care provider. -Patient counseled on abstaining from recreational drugs and marijuana and alcohol. Was informed/educated on the adverse effects on their physical and mental health. [Patient verbally agreed and understood]. -Patient would benefit from getting connected to a new therapist for individual therapy. -Patient was instructed to return to the hospital or seek immediate medical care if their psychiatric or medical symptoms do worsen or reoccur. Allergies Allergy/AdvReac Type Severity Reaction Status Date / Time No Known Allergies Allergy Unverified 06/03/22 16:01 Laboratory Results WBC 8.2 k/uL (3.8-10.6) 06/04/22 11:12 RBC 4.72 m/uL (3.80-5.40) 06/04/22 11:12 Hgb 13.4 gm/dL (11.4-16.0) 06/04/22 11:12 Hct 41.2 % (34.0-46.0) 06/04/22 11:12 MCV 87.4 fL (80.0-100.0) 06/04/22 11:12 MCH 28.5 pg (25.0-35.0) 06/04/22 11: MCHC 32.6 g/dL (31.0-37.0) 06/04/22 11:12 RDW 13.6 % (11.5-15.5) 06/04/22 11:12 Plt Count 362 k/uL (150-450) 06/04/22 11:12 MPV 6.9 06/04/22 11:12 Neutrophils % 51 % 06/04/22 11:12 Lymphocytes % 34 % 06/04/22 11:12 Monocytes % 7 % 06/04/22 11:12 Eosinophils % 3 % 06/04/22 11:12 Basophils % 1 % 06/04/22 11:12 Neutrophils # 4.1 k/uL (1.3-7.7) 06/04/22 11:12 Lymphocytes # 2.8 k/uL (1.0-4.8) 06/04/22 11:12 Monocytes # 0.6 k/uL (0-1.0) 06/04/22 11:12 Eosinophils # 0.3 k/uL (0-0.7) 06/04/22 11:12 Basophils # 0.1 k/uL (0-0.2) 06/04/22 11:12 Sodium 140 mmol/L (137-145) 06/04/22 11:12 Potassium 4.5 mmol/L (3.5-5.1) 06/04/22 11:12 Chloride 103 mmol/L (98-107) 06/04/22 11:12 Carbon Dioxide 31 mmol/L (22-30) H 06/04/22 11:12 Anion Gap 6 mmol/L 06/04/22 11:12 BUN 26 mg/dL (7-17) H 06/04/22 11:12 Creatinine 1.07 mg/dL (0.52-1.04) H 06/04/22 11:12 Est GFR (CKD-EPI)AfAm 62 (>60 ml/min/1.73 sqM) 06/04/22 11:12 Est GFR (CKD-EPI)NonAf 53 (>60 ml/min/1.73 sqM) 06/04/22 11:12 Glucose 82 mg/dL (74-99) 06/04/22 11:[address] Glu mg/dL 135 06/04/22 11:12 Hemoglobin A1c 6.3 % (0.0-6.0) H 06/04/22 11:12 Calcium 9.2 mg/dL (8.4-10.2) 06/04/22 11:12 Total Bilirubin 0.4 mg/dL (0.2-1.3) 06/04/22 11:12 AST 24 U/L (14-36) 06/04/22 11:12 ALT 25 U/L (4-34) 06/04/22 11:12 Alkaline Phosphatase 91 U/L (38-126) 06/04/22 11:12 Total Protein 6.8 g/dL (6.3-8.2) 06/04/22 11:12 Albumin 4.0 g/dL (3.5-5.0) 06/04/22 11:12 TSH 2.200 mIU/L (0.465-4.680) 06/04/22 11:12 Urine Color Yellow 06/03/22 18:21 Urine Appearance Clear (Clear) 06/03/22 18:21 Urine pH 5.0 (5.0-8.0) 06/03/22 18:21 Ur Specific [place] 1.018 (1.001-1.035) 06/03/22 18:21 Urine Protein Negative (Negative) 06/03/22 18:21 Urine Glucose (UA) Negative (Negative) 06/03/22 18:21 Urine Ketones Negative (Negative) 06/03/22 18:21 Urine Blood Negative (Negative) 06/03/22 18:21 Urine Nitrite Negative (Negative) 06/03/22 18:21 Urine Bilirubin Negative (Negative) 06/03/22 18:21 Urine Urobilinogen <2.0 mg/dL (<2.0) 06/03/22 18:21 Ur Leukocyte Esterase Negative (Negative) 06/03/22 18:21 Urine Opiates Screen Not Detected (NotDetected) 06/03/22 18:21 Ur Oxycodone Screen Not Detected (NotDetected) 06/03/22 18:21 Urine Methadone Screen Not Detected (NotDetected) 06/03/22 18:21 Ur Propoxyphene Screen Not Detected (NotDetected) 06/03/22 18:21 Ur Barbiturates Screen Not Detected (NotDetected) 06/03/22 18:21 U Tricyclic Antidepress Not Detected (NotDetected) 06/03/22 18:21 Ur Phencyclidine Scrn Not Detected (NotDetected) 06/03/22 18:21 Ur Amphetamines Screen Not Detected (NotDetected) 06/03/22 18:21 U Methamphetamines Scrn Not Detected (NotDetected) 06/03/22 18:21 U Benzodiazepines Scrn Not Detected (NotDetected) 06/03/22 18:21 Urine Cocaine Screen Not Detected (NotDetected) 06/03/22 18:21 U Marijuana (THC) Screen Not Detected (NotDetected) 06/03/22 18:21 Coronavirus (PCR) Not Detected (Not Detectd) 06/03/22 16:35 Vital Signs Temp 97.9 F 06/09/22 00:40 Pulse 97 06/09/22 00:40 Resp 17 06/09/22 00:40 BP 104/62 06/09/22 00:40 Pulse Ox 93 L 06/09/22 00:40 FiO2 Patient Condition at Discharge: Stable Plan - Discharge Summary New Discharge Prescriptions: New Venlafaxine HCl [Effexor XR] 225 mg PO DAILY 30 Days #30 tab Melatonin 6 mg PO HS 30 Days #60 tab Continue Calcium Carbonate [Calcium] 600 mg PO DAILY Zinc Gluconate [Zinc] 50 mg PO DAILY Magnesium Oxide 400 mg PO DAILY Albuterol Sulfate [Ventolin HFA] 2 puff INHALATION RT-Q6H PRN PRN Reason: Shortness Of Breath buPROPion XL [Wellbutrin XL] 150 mg PO DAILY 30 Days #30 tab Cholecalciferol [Vitamin D3 (125 Mcg = 5000 Iu)] 125 mcg PO DAILY Umeclidinium [place] [Incruse Ellipta] 1 puff INHALATION RT-DAILY Levothyroxine Sodium [Synthroid] 88 mcg PO DAILY Atorvastatin [Lipitor] 40 mg PO DAILY amLODIPine BESYLATE/BENAZEPRIL [Lotrel 5-10 mg Capsule] 1 cap PO DAILY Vitamin B Complex 1 cap PO DAILY buPROPion XL [Wellbutrin XL] 300 mg PO DAILY 30 Days #30 tab Discontinued Zolpidem Tartrate [Ambien] 10 mg PO HS Venlafaxine HCl [Effexor XR] 150 mg PO DAILY ALPRAZolam [Xanax] 0.25 mg PO DAILY PRN PRN Reason: Anxiety Discharge Medication List Albuterol Sulfate [Ventolin HFA] 2 puff INHALATION RT-Q6H PRN 06/03/22 [History] Atorvastatin [Lipitor] 40 mg PO DAILY 06/03/22 [History] Calcium Carbonate [Calcium] 600 mg PO DAILY 06/03/22 [History] Cholecalciferol [Vitamin D3 (125 Mcg = 5000 Iu)] 125 mcg PO DAILY 06/03/22 [History] Levothyroxine Sodium [Synthroid] 88 mcg PO DAILY 06/03/22 [History] Magnesium Oxide 400 mg PO DAILY 06/03/22 [History] Umeclidinium [place] [Incruse Ellipta] 1 puff INHALATION RT-DAILY 06/03/22 [History] Vitamin B Complex 1 cap PO DAILY 06/03/22 [History] Zinc Gluconate [Zinc] 50 mg PO DAILY 06/03/22 [History] amLODIPine BESYLATE/BENAZEPRIL [Lotrel 5-10 mg Capsule] 1 cap PO DAILY 06/03/22 [History] Melatonin 6 mg PO HS 30 Days #60 tab 06/09/22 [Rx] Venlafaxine HCl [Effexor XR] 225 mg PO DAILY 30 Days #30 tab 06/09/22 [Rx] buPROPion XL [Wellbutrin XL] 150 mg PO DAILY 30 Days #30 tab 06/09/22 [Rx] buPROPion XL [Wellbutrin XL] 300 mg PO DAILY 30 Days #30 tab 06/09/22 [Rx] Follow up Appointment(s)/Referral(s): Psychiatry, Biological [Other] - 09/18/22 1:15 pm (Dr Mansfield 09/18 @ 13:15 patient is on high priority cancellation list for earlier appt date ) Babak Parsons MD [Primary Care Provider] - 1 Week Patient Instructions/Handouts: Depression (DC), Generalized Anxiety Disorder (GEN), Prediabetes (GEN), Hemoglobin A1c (GEN), Mediterranean Diet (GEN), Suicide Prevention (DC) Activity/Diet/Wound Care/Special Instructions: Avoid the use of street drugs and alcohol. Take all prescriptions as prescribed. When you are in need of refills on your medications, please contact your medical provider and/or outpatient psychiatrist to have this done. Please go to scheduled outpatient appointment for aftercare treatment. If symptoms return or become worse, call the crisis line at and/or go to the nearest emergency room for evaluation Discharge Disposition: HOME SELF-CARE Plan of Treatment: follow up with your PCP on your A1c which reflected pre diabetes
== END 2022-06-09 13:31 | disposition home or self-care (01) | DRG 881 ==
LOC: EC 13:28 → 3MHU 18:41
PROVIDERS: ADMIT Psychiatry & Neurology Psychiatry; ATTEND Psychiatry & Neurology Psychiatry
DX: F32.9 Major depressive disorder, single episode, unspecified (principal); R45.851 Suicidal ideations; Z20.822 Contact with and (suspected) exposure to COVID-19; F41.9 Anxiety disorder, unspecified; J45.30 Mild persistent asthma, uncomplicated; E03.9 Hypothyroidism, unspecified; G47.00 Insomnia, unspecified; R73.03 Prediabetes; M48.00 Spinal stenosis, site unspecified; I10 Essential (primary) hypertension; M19.90 Unspecified osteoarthritis, unspecified site; R01.1 Cardiac murmur, unspecified; E66.9 Obesity, unspecified; Z68.36 Body mass index [BMI] 36.0-36.9, adult; Z79.890 Hormone replacement therapy; Z79.899 Other long term (current) drug therapy; Z87.891 Personal history of nicotine dependence
CPT/HCPCS: 80053; 80306; 81003; 82075; 83036; 84443; 85025; 87635; 94640; 99285